=== PATIENT | female | born 1995 | race African-American/Black ===

== ENCOUNTER 2021-08-20 21:36 | Emergency (ER) | payer SELFPAY ==
[~2021-08-20] VITALS: Ht 175.3 cm; Wt 70.0 kg
[2021-08-20 21:43] VITALS: BP 139/90
== END 2021-08-21 01:48 | disposition left against medical advice (07) ==
LOC: ER 21:36
DX: S61.412A Laceration without foreign body of left hand, initial encounter (principal); F33.9 Major depressive disorder, recurrent, unspecified; X58.XXXA Exposure to other specified factors, initial encounter; Y93.9 Activity, unspecified; Y92.9 Unspecified place or not applicable
CPT/HCPCS: 99283